=== PATIENT | female | born 1990 | race Caucasian/White ===

== ENCOUNTER 2016-10-06 05:21 | Day surgery (SDC) | payer MEDICAID ==
[2016-10-03 11:10] LABS: CALC OSMOLALITY 279 mosm/kg (275-300); CALCIUM 9.1 mg/dL (8.5-10.1); CHLORIDE - SERUM 108 mmol/L (98-107); CREATININE - SERUM 0.7 mg/dL (0.6-1.3); GLUCOSE 88 mg/dL (74-106); POTASSIUM - SERUM 3.6 mmol/L (3.5-5.1); SODIUM 142 mmol/L (136-145); UREA NITROGEN 8 mg/dL (7-18); eGFR NON AFRICAN AMERICAN > 90 mL/min (90-120)
[2016-10-03 11:47] LABS: BASOPHILS 0.5 % (0.0-2.0); EOSINOPHILS 0.8 % (0-7); HEMATOCRIT 42.2 % (36.0-48.0); IMMATURE GRANULOCYTES 0.3 % (0-5); LYMPHOCYTES 27.1 % (15-50); MCH 29.2 pg (26.0-34.0); MCHC 33.2 g/dL (31.0-37.0); MCV 88.1 fL (80.0-100.0); MEAN PLATELET VOLUME 10.5 fL (7.4-10.4); MONOCYTES 8.5 % (2-11); NEUTROPHILS 62.8 % (40-80); PLATELET COUNT 240 10x3/uL (130-400); RBC 4.79 10x6/uL (4.00-5.40)
[~2016-10-06] VITALS: Ht 149.9 cm; Wt 78.5 kg
[~2016-10-06 05:21] MED LIST: ACETAZOLAMIDE250 MG PO; CELEXA20 MG PO; GLUCOPHAGE1000 MG PO; NORVASC5 MG PO
[2016-10-06] MEDS ORDERED: BAYER CHEWABLE81 MG PO (06:33)
--- NOTE | 2016-10-06 06:41 | NUR ---
0640 PT STATES NO CHANGES IN HEALTH HISTORY ASSESSMENT SINCE INTERVIEWED ON 10/03/16. Louann MATIAS R.N.
[2016-10-06 06:43] VITALS: BP 127/82; Ht 149.9 cm; Wt 78.5 kg
[2016-10-06 07:10] LABS: HCG URINE NEGATIVE (NEGATIVE)
--- NOTE | 2016-10-06 09:48 | NUR ---
OPA IN AIRWAY ON ADMIT
--- NOTE | 2016-10-06 10:35 | NUR ---
1030 FL DIET SERVED
--- NOTE | 2016-10-07 08:05 | OP ---
PATIENT NAME: ESDRAS HOOVER MEDICAL RECORD: [id number] :86 LOCATION:D.OPS ADMISSION DATE: SURGEON: APURVA ANGELES MD DATE OF OPERATION: 10/06/2016 PREOPERATIVE DIAGNOSIS: 1. Desired sterility. POSTOPERATIVE DIAGNOSES: 1. Desired sterility. 2. Cystic right ovary, status post ovarian cyst drainage. SURGEON: Apurva Angeles MD ANESTHESIA: General endotracheal anesthesia with Latasha Bianchi CRNA. PROCEDURES: 1. Diagnostic laparoscopy. 2. Sterilization via bilateral distal salpingectomy. 3. Right ovarian cyst drainage (4 cysts). FINDINGS: Normal appearing uterus, bilateral fallopian tubes, and left ovary. Right ovary with approximately 4-5 cm sized with 4 simple appearing cyst ranging in size from 1-3 cm. No evidence of endometriosis, adhesive disease. Normal appearing appendix. SPECIMENS: 1. Right distal fallopian tube/fimbria. 2. Left distal fallopian tube/fimbria. PROCEDURE IN DETAIL: After informed consent was given, the patient was taken to the operating room where general endotracheal anesthesia was placed and found to be adequate. She was placed in a dorsal lithotomy position in [facility]. She was prepped and draped sterilely including a vaginal prep. A catheter was placed into the bladder and bladder drained with approximately 10 cc of clear urine return. A bivalve speculum was then placed in the vagina, the cervix visualized and grasped anteriorly with a single-tooth tenaculum. A Pelosi uterine manipulator was then placed with ease and the bivalve speculum was removed. Gloves were changed. The patient was placed into a ski position, an infraumbilical incision was then made with the scalpel, and with elevation of the anterior abdominal wall, a 5-mm Optiview port was placed under direct visualization. No obvious injury to underlying structures was appreciated. Opening pressure noted to be 7 mmHg. The abdomen was then insufflated with approximately 2 liters of CO2 gas. The patient was placed into Trendelenburg and the pelvic structures were brought into view with findings as listed above. Two additional 5-mm ports were placed in the right and left lower quadrant under direct visualization. The right fallopian tube was then gently held on traction as the J hook was used to create a defect in the mesosalpinx. The Gyrus was then used to cauterize and the Harmonic scalpel to transect the more proximal region of the right fallopian tube. We then continued using the Harmonic scalpel to cauterize and transect the mesosalpinx until reaching the distal region of the fimbria. The Gyrus was then again used to cauterize this region and the Harmonic scalpel to transect it. The right distal fallopian tube and fimbria were then fully excised and removed through the 5-mm port and passed off the field as specimen. The right ovary was noted to have multiple simple OPERATIVE REPORT [id number] SNEHA,ESDRAS appearing cysts. The J hook was used to puncture the largest of the cyst and a clear serous drainage was noted. We then used the J hook to puncture and 3 additional cyst measuring 1-2 cm size and clear serous drainage was noted from these as well. The ovary then deflated and was comparable incised to the left ovary. Attention was then turned to the left fallopian tube. The left fallopian tube was grasped with an atraumatic grasper, held gently on traction as the J hook was used to create a defect in the mesosalpinx. In a similar fashion, the Gyrus was used to cauterize and the Harmonic scalpel to transect the more proximal region of the left fallopian tube. We then used the Harmonic scalpel to cauterize and transect the mesosalpinx until reaching the distal fimbrial region. The distal fimbrial region was then cauterized with the Gyrus, transected with the Harmonic scalpel, and the distal fallopian tube and fimbria were fully excised and removed through the 5-mm port and passed off the field as specimen. Excellent hemostasis was noted. The abdomen and pelvis were irrigated profusely and noted to be hemostatic. The ureters were identified and noted to be peristalsing normally. The appendix was identified and noted to be normal in appearance. No evidence of endometriosis or adhesive disease was noted. The right and left lower quadrant ports were then removed under direct visualization and hemostasis was assured. The abdomen was desufflated. The 5-mm umbilical port was removed. All 3 port sites were closed with 3-0 Monocryl in a subcuticular fashion with Dermabond, Steri-Strips, and Band-Aids applied atop. The patient was returned to a lithotomy position. The Pelosi uterine manipulator was removed. The single-tooth tenaculum was removed and both silver nitrate and Bovie cautery were used at the tenaculum sites with excellent hemostasis then noted. The bivalve speculum was removed. The patient was returned to a supine position, awakened and taken into the recovery room in stable condition. The patient tolerated procedure well. Sponge, lap, needle, and instrument counts were reported correct times 2. ESTIMATED BLOOD LOSS: Minimal. IV FLUIDS: 700 mL of LR. URINE OUTPUT: 10 cc. COMPLICATIONS: None. TRANSINT:[id number] Voice Confirmation ID: [id number] DOCUMENT ID: [id number] APURVA ANGELES MD at 0805 CC: [id number] DICTATION DATE: 10/06/16 0943 HEALTH PROFESSOR: 10/06/16 1029 [facility] 10/06/16 [id number] [place] [address]
== END 2016-10-06 11:13 | disposition home or self-care (01) ==
LOC: D.OPS 05:21 → D.PAN 07:30 → D.OPS 11:13
PROVIDERS: Anesthesiology; Specialist
DX: Z30.2 Encounter for sterilization (principal); N83.291 Other ovarian cyst, right side